=== PATIENT | female | born 1955 | race Caucasian/White ===

== ENCOUNTER → 2022-11-11 09:22 | Outpatient (CLI) | payer MEDICARE, SELFPAY ==
--- NOTE | 2022-11-11 | XR_ITS ---
FINAL REPORT CLINICAL HISTORY: cough, pre-op testing COMPARISON: none FINDINGS: Two views of the chest were obtained. The heart size and pulmonary vascularity are within normal limits. The mediastinum is normal. Mild left basilar atelectasis or scarring. There is no pneumothorax. There are mild to moderate degenerative changes of the thoracic spine. IMPRESSION: Mild left basilar atelectasis or scarring. Reviewed, Interpreted and Dictated by Roverto Rubalcava III, MD Transcribed by Karla Ireland Authenticated and [facility]
--- NOTE | 2022-11-11 10:03 | ECG_ITS ---
APPROVED REPORT Exam: Resting ECG HR:76 bpm ECG Measurements Heart Rate 76 AXES MA 156 P 66 QRSd 75 QRS 44 QT 358 T 50 QTc 389 Conclusion SINUS RHYTHM LOW QRS VOLTAGE IN PRECORDIAL LEADS [QRS DEFLECTION < 1.0 mV IN CHEST LEADS] BORDERLINE ECG UNCONFIRMED REPORT Electronically signed by : Yaron Snow MD 11/11/2022 21:33:50
[2022-11-11 10:17] LABS: Basophils # 0.1 K/mm3 (0-0.2); Eosinophils # 0.3 K/mm3 (0.0-0.4); Eosinophils % 2.1 % (0.1-12.0); Hematocrit 45.3 % (37.0-47.0); Hemoglobin 14.5 g/dL (12.2-16.2); Lymphocytes # 1.9 K/mm3 (0.7-4.5); Lymphocytes % 16.1 % (10-50); Mean Corpuscular Hemoglobin 28.4 pg (27.0-31.2); Mean Corpuscular Volume 88.8 fl (81-99); Mean Platelet Volume 8.5 fl (7.4-10.4); Monocytes # 0.6 K/mm3 (0.1-1.0); Monocytes % 4.6 % (1.7-9.3); Neutrophils # 9.1 K/mm3 (1.8-7.8); Neutrophils % 76.2 % (37.0-80.0); Platelet Count 311 K/mm3 (142-424); Red Blood Count 5.11 M/mm3 (4.20-5.40); Red Cell Distribution Width 13.6 % (11.5-17.5)
[2022-11-11 11:11] LABS: Alanine Aminotransferase 22 U/L (12-78); Albumin Level 4.5 g/dl (3.5-5.0); Albumin/Globulin Ratio 1.7 (1.1-1.8); Alkaline Phosphatase 103 U/L (38-126); Anion Gap 9.5 mEq/L (5-15); Aspartate Amino Transferase 29 U/L (14-36); Bilirubin,Total 1.2 mg/dl (0.2-1.3); Blood Urea Nitrogen 13 mg/dl (7-17); Calcium 9.3 mg/dl (8.4-10.2); Carbon Dioxide 27 mmol/L (22.0-30.0); Chloride 107 mmol/L (98-107); Estimated Glomerular Filt Rate 71 ml/min (>60); GFR (African American) 86 ML/MIN (>60); Globulin 2.7 g/dL (1.3-3.2); Glucose 107 mg/dl (74-100); Potassium 4.5 mmoL/L (3.5-5.1); Sodium 139 mmol/L (136-145); Total Protein,Serum 7.2 g/dl (6.3-8.2)
== END ==
PROVIDERS: Visit Provider Podiatrist
DX: Z01.818 Encounter for other preprocedural examination (principal); M20.11 Hallux valgus (acquired), right foot
CPT/HCPCS: 36415; 71046; 80053; 85025; 93005

== ENCOUNTER 2022-11-27 07:28 | Day surgery (SDC) | payer MEDICARE, SELFPAY ==
[2022-11-25 12:33] VITALS: BMI 29.0
[2022-11-27 08:01] VITALS: BP 172/74; PULSE 88; RESP 18; TEMP 36.6; O2SAT 99
--- NOTE | 2022-11-27 10:28 | P.PN_ITS ---
[facility] Disclaimer: The information contained in this section may have been updated after the patient was seen, as this information can be updated by other users. Medical History History of COVID-19 Hypothyroid Surgical History H/O removal of cyst History of bunionectomy of left great toe History of lumpectomy of left breast History of surgery Family History Father Heart attack Social History Smoking Status: Former smoker years smoked: 30 how long ago did patient quit smokin years ago alcohol intake: current substance use type: denies use current occupational status: retired Travel in the last 8 weeks: None caffeine: No [facility] Anesthesia Checklist Patient Identification Patient Identification: Arm Band and Verbal (Name & ) Structural Data Admitted From: Home Planned Operative Procedure/s: Hammertoe repair Consent for Planned Operative Procedure(s) Verified: Yes NPO Status Verified Time NPO: 00:00 Chart Verification Results Verified: CBC and BMP Additional verifications Anesthesia Reactions: No Hx Blood Transfusions: No Blood Transfusion Reaction: No Airway Assessment C-Spine Mobility Assessed: Yes TMJ Mobility Assessed: Yes Dentition: Good Dentition Neurological Assessment Level of Consciousness: Awake Hx Seizures: No Numbness or tingling in extremities: No Anesthesia Plan Anesthesia Risk discussed: Yes Anesthesia Plan: Verified ASA Class: II Anesthesia Type: MAC w/Block
[2022-11-27 10:34] VITALS: TEMP 43
[2022-11-27 11:37] VITALS: BP 116/58; PULSE 105; RESP 16; TEMP 36.5; O2SAT 92
--- NOTE | 2022-11-27 11:41 | XR_ITS ---
FINAL REPORT CLINICAL HISTORY: post surg FINDINGS: AP, oblique and lateral views of the right foot were obtained. There is no prior exam for comparison. Plaster cast obscures some of the detail. There is a surgical pin affixing the 2nd metatarsophalangeal, 2nd PIP, and DIP joints. There are surgical change of the 1st tarsometatarsal articulation. No immediate complication is identified. IMPRESSION: Postsurgical changes without immediate complication. Reviewed, Interpreted and Dictated by Jolynn Bullard MD Transcribed by Yasmin Murphy Authenticated and [facility]
[2022-11-27 11:47] VITALS: BP 123/70; PULSE 89; RESP 17; O2SAT 96
--- NOTE | 2022-11-27 11:53 | XR_ITS ---
FINAL REPORT CLINICAL HISTORY: post surgery of foot FINDINGS: AP, oblique, and lateral views of the right ankle were obtained. There is no prior exam for comparison. There is no fracture or dislocation. Plaster cast is present. There is mild degenerative disease. The ankle mortise is intact. Soft tissues are normal. IMPRESSION: No acute osseous abnormality of the right ankle. Reviewed, Interpreted and Dictated by Jolynn Bullard MD Transcribed by Yasmin Murphy Authenticated and [facility]
--- NOTE | 2022-11-27 11:54 | EXP.OP.NOTE ---
Date of procedure: 11/27/22 Pre-op Diagnosis:: Right hallux valgus deformity; 2nd hammertoe; painful right foot Post-op Diagnosis:: Same Procedure performed:: Lapidus procedure right; bunionectomy; 2nd hammertoe correction Surgeon:: Vinicius Chang DPM Anesthesia: MAC Estimated blood loss (mL): 3 Operative findings:: expected Operative note:: Patient was seen in the preop holding area. Discussion with the patient to confirm the planned procedure was performed and this foot was signed. All questions were answered to the patient's satisfaction. Patient was then evaluated by anesthesia department. Patient was wheeled to the operative room and placed on the operating table in the supine position. The operative site was clearly marked and then prepped and draped in the usual aseptic manner. Timeout was performed in the room and we confirmed the planned procedure on the Right foot, and the patient's identification, and we all were in agreement. The attention was directed to the patient's surgical foot and Esmarch bandage used to extended patient's foot and ankle and the tourniquet inflated to 250 mils mercury about the malleoli. A dorsal linear longitudinal incision was made from the metatarsal cuneiform joint following and medial with the extensor hallucis longus tendon to the dorsal aspect of the proximal hallux. Incision was deepened to subcutaneous tissues being careful to preserve protect vital neurovascular structures and bleeders cauterized with the Bovie as necessary. Attention was directed to the first metatarsal phalangeal joint where a dorsal linear longitudinal capsulotomy was made medial and parallel with the extensor hallucis longus tendon. The medial eminence and dorsal head of the first metatarsal were remodeled with sagittal bone saw. At this point blunt and sharp dissection was carried down to the first interspace and the fibular sesamoid was freed of soft tissue attachments and performed a lateral capsulotomy. There was good range of motion noted at the first MPJ at this level. Attention now was directed to the metatarsal cuneiform joint which was dissected down to the joint capsule and freed of soft tissue attachments. Sagittal bone saw was used to resect portion of the metatarsal cunifeiform joint carlitage and bone in the multiple planes. At this point the base of the metatarsal and the cuneiform were placed in proximity to each other with bleeding sides in a corrected position and fixation was accomplished using a cannulated screw and a speed staple. There is good alignment noted for the entire correction of the procedure and it was deemed to be appropriate for closure so irrigated the wound with copious amount of sterile normal saline and then closed in layers with 2-0 Vicryl 3-0 Vicryl and 3-0 nylon. Attention was directed to the second toe. A dorsal linear linear logical incision was made on the dorsal aspect of the proximal inner phalangeal joint and extended to the metatarsal phalangeal joint. Care was taken to preserve protect vital neurovascular structures bleeders cauterized with Bovie as necessary. At this point a tenotomy and capsulotomy was performed of the proximal to phalangeal joint of the second toe. Then the head of the proximal phalanx was resected with sagittal bone saw and rongeurs and solid rongeurs were also used to resect the cartilaginous base of the middle phalanx. Attention directed at the metatarsal phalangeal joint and freed up of soft tissue attachments and contractures at that level with McClamary elevator. Fixation was accomplished by directing a K wire through the middle and distal phalanges of the distal aspect of the toe and then retrograde fashion back through the proximal phalanx and into the metatarsal in a rectus position. Irrigated with Sterile Saline and Closed the Toe in Layers in a Rectus Position Using 3-0 Vicryl and 3-0 Nylon. Dressed the surgical wounds with Xeroform or Adaptic
[2022-11-27 11:57] VITALS: BP 125/77; PULSE 80; RESP 16; O2SAT 96
[2022-11-27 12:15] VITALS: BP 117/71; PULSE 81; RESP 17; O2SAT 97
== END 2022-11-27 12:15 | disposition home or self-care (01) ==
PROVIDERS: Visit Provider Podiatrist
PROC: (CPT 28285; principal; 2022-11-27 09:15)
DX: M20.11 Hallux valgus (acquired), right foot (principal); M20.41 Other hammer toe(s) (acquired), right foot; M77.51 Other enthesopathy of right foot and ankle; M19.071 Primary osteoarthritis, right ankle and foot
CPT/HCPCS: 28285; 28297; 73610; 73630; 96374; C1713; J2704